=== PATIENT | male | born 1950 | race Caucasian/White ===

== ENCOUNTER 2018-12-27 12:46 | Outpatient (CLI) | payer BC, MEDICARE ==
[2018-12-27 14:06] LABS: #Basophils 0.1 thou/uL (0.0-0.2); #Eosinphils 0.5 thou/uL (0.0-0.7); #Lymphocytes 3.4 thou/uL (1.20-3.40); #Monocytes 0.7 thou/uL (0.11-0.59); #Neutrophils 4.4 thou/uL (1.40-6.50); %Basophils 1.1 % (0.0-1.0); %Eosinophils 5.6 % (0.0-10.0); %Lymphocytes 37.2 % (21.0-51.0); %Neutrophils 48.1 % (42.0-75.0); Hemoglobin 17.6 g/dL (14.0-18.0); Mean Corpuscular Volume 94.2 fL (78.0-98.0); Platelet Count 264 thou/uL (130-400); RBC Distribution Width 11.5 % (11.5-14.5); Red Blood Cell (RBC) Count 5.33 mill/uL (4.70-6.10); White Blood Cell (WBC) Count 9.1 thou/uL (4.8-10.8)
[2018-12-27 14:12] LABS: Prothrombin Time 12.9 SEC (12.0-14.7)
[2018-12-27 14:22] LABS: Bacteria/HPF None Seen HPF (None Seen); Bilirubin Negative (Negative); Blood, Urine 2+ (Negative); Clarity Clear (Clear); Glucose, Urine (Dipstick) Normal (Negative); Leukocyte Negative Leu/uL (Negative); Nitrite Negative (Negative); Protein, Urine (Dipstick) 30 mg/dL (Neg-Trace); Squamous Epithelial None Seen HPF (0-3); Urobilinogen 3 mg/dL (Less than 2); WBC/HPF 0-3 HPF (0-3)
[2018-12-27 14:26] LABS: Anion Gap 15 mmol/L (10-20); BUN (Urea Nitrogen) 23 mg/dL (8.4-25.7); Calc. Creatinine Clearance 0 mL/min (70-130); Calcium 9.3 mg/dL (7.8-10.44); Carbon Dioxide 25 mmol/L (23-31); Chloride 101 mmol/L (98-107); Estimated GFR-MDRD 87; Glucose 118 mg/dL (80-115); Potassium 3.7 mmol/L (3.5-5.1); Sodium 137 mmol/L (136-145)
--- NOTE | 2018-12-27 16:56 | EKG ---
Test Reason : Blood Pressure : / mmHG Vent. Rate : 074 BPM Atrial Rate : 074 BPM P-R Int : 290 ms QRS Dur : 096 ms QT Int : 394 ms P-R-T Axes : 063 078 047 degrees QTc Int : 437 ms Sinus rhythm with 1st degree A-V block Possible Anterior infarct , age undetermined Abnormal ECG Confirmed by VANE BARKLEY ([id number]) on 12/27/2018 4:56:45 PM Referred By: FLORECITA Confirmed By:VANE BARKLEY
== END 2018-12-27 12:47 | disposition home or self-care (01) ==
LOC: LABBT 12:46
PROVIDERS: ATTEND Orthopaedic Surgery
DX: Z01.818 Encounter for other preprocedural examination (principal); M17.11 Unilateral primary osteoarthritis, right knee
CPT/HCPCS: 80048; 81001; 85025; 85610; 87081; 93005; 93010

== ENCOUNTER 2018-12-27 13:15 | Inpatient (IN) | payer BC, MEDICARE ==
[2018-12-27 13:08] VITALS: BMI 32.8
[2019-01-08] MEDS ORDERED: Sodium Chloride 0.9% 100 ML ONE (05:55)
[2019-01-08] MEDS ORDERED: Tranexamic Acid 1,000 MG/10 ML VIAL ONE (05:55)
[2019-01-08] MEDS ORDERED: Vancomycin 1.5 GRAM/300 ML BAG 1.5 GM in Premix Bag 1 BAG IVPB SCH (06:00)
[2019-01-08] MEDS ORDERED: Lidocaine 1% (PF) 30 ML VIAL ONE (06:17)
[2019-01-08] MEDS ORDERED: Midazolam HCl 2 mg/2 ml Vial ONE (06:17)
[2019-01-08] MEDS ORDERED: Fentanyl 100 MCG/2 ML VIAL ONE ×2 (06:17→07:12)
[2019-01-08] MEDS ORDERED: Ropivacaine 0.2% HCl/PF 20 ML ONE (06:17)
[2019-01-08] MEDS ORDERED: Fentanyl 100 MCG/2 ML VIAL IV PRN (07:12)
[2019-01-08] MEDS ORDERED: Ondansetron PF 4 MG/2 ML Vial IVP PRN ×2 (07:12→07:14)
[2019-01-08] MEDS ORDERED: traMADol HCl 50 MG TAB PO PRN ×2 (07:12)
[2019-01-08] MEDS ORDERED: Promethazine HCl 25 MG/ML VIAL IM PRN ×2 (07:12→07:14)
[2019-01-08] MEDS ORDERED: HYDROcodone/Acetaminophen 10/325 mg Tablet PO PRN (07:12)
[2019-01-08] MEDS ORDERED: Zolpidem Tartrate 5 MG TAB PO PRN ×2 (07:12→07:14)
[2019-01-08] MEDS ORDERED: Ropivacaine HCl/PF 250 ML in Premix Bag 1 BAG NERVE BLCK SCH (07:12)
[2019-01-08] MEDS ORDERED: Acetaminophen 325 MG TAB PO PRN (07:14)
[2019-01-08] MEDS ORDERED: diphenhydrAMINE 25 MG CAP PO PRN (07:14)
[2019-01-08] MEDS ORDERED: Docusate 100 MG CAP PO PRN (07:15)
[2019-01-08] MEDS: Sodium Chloride 0.9% 1,000 ML IV SCH ×3 (07:38→23:20)
[2019-01-08] MEDS ORDERED: Aspirin 325 MG TAB PO SCH (09:00)
[2019-01-08] MEDS ORDERED: TUMERIC 1000 MG PO SCH (09:00)
--- NOTE | 2019-01-08 09:11 | RAD ---
Exam:2 views right knee HISTORY: Right knee arthroplasty COMPARISON: None FINDINGS: Expected postoperative changes. No malalignment. Extensive atherosclerosis. IMPRESSION: Findings compatible with total right knee arthroplasty.
[2019-01-08] MEDS ORDERED: Lidocaine 1% PF 5 ML VIAL ONE (09:39)
[2019-01-08] MEDS ORDERED: PROPOFOL 200 MG/20 ML VIAL ONE (09:39)
[2019-01-08] MEDS ORDERED: Metoclopramide HCl 10 MG/2 ML VIAL ONE (09:39)
[2019-01-08] MEDS ORDERED: Ropivacaine 0.2% HCl/PF (40 MG/20 ML VIAL) ONE (09:39)
[2019-01-08] MEDS ORDERED: Ondansetron PF 4 MG/2 ML Vial ONE (09:39)
[2019-01-08] MEDS ORDERED: PHENYLEPHRINE-NS 100 MCG/ML 10 ML SYRINGE ONE (09:39)
[2019-01-08] MEDS ORDERED: ePHEDrine/0.9% NaCl/PF SYRINGE 50 mg/10 ml ONE (09:39)
[2019-01-08] MEDS ORDERED: Bupivacaine HCl 0.5%/Epinephrine 1:200,000/PF 30 ml Vial ONE (09:39)
[2019-01-08] MEDS ORDERED: Dexamethasone 20 MG/5 ML VIAL ONE (09:39)
--- NOTE | 2019-01-08 10:17 | OP ---
DATE OF PROCEDURE: 01/08/2019 PREOPERATIVE DIAGNOSIS: End-stage tricompartmental osteoarthritis, right knee. POSTOPERATIVE DIAGNOSIS: End-stage tricompartmental osteoarthritis, right knee. PROCEDURE PERFORMED: Cemented cruciate sparing computer-assisted navigated right total knee arthroplasty. BOILER REPAIR SUPERVISOR: Iftikhar Lowry PA-C ANESTHESIA: General via LMA augmented with indwelling adductor canal block and a single-shot sciatic block. COMPONENTS USED: [employer] Triathlon size 6 cemented cruciate sparing femoral component, primary cemented size 6 tibial baseplate, 9 mm polyethylene fixed bearing insert, and A38 patella button. TOURNIQUET TIME: 51 minutes at 300 mmHg. INPUT: 1 L crystalloid. OUTPUT: None measured. No Ronquillo placed. ESTIMATED BLOOD LOSS: Less than 100. FINDINGS: End-stage severe degenerative tricompartmental disease, [id number] arthrosis, periarticular osteophyte formation, large serous effusion, hypertrophic synovium. DRAINS: None. SPECIMENS: None. COMPLICATIONS: None. COUNTS: Correct. INDICATION FOR SURGERY: Jese is a 68-year-old white male, who has had progressive right knee pain standing and walking for last 5 to 7 years. He has failed conservative management and elected to proceed with total knee arthroplasty as definitive treatment of pain. PROCEDURE IN DETAIL: After informed consent was obtained in the preoperative holding area, the patient was taken to the operative suite where general anesthesia was induced. Once adequate level of general anesthesia was obtained, the patient was positioned and a well-padded tourniquet was placed around the right proximal thigh. The right lower extremity was then prepped and draped in the usual sterile fashion. Prior to exsanguination, a time-out was called and all members of the surgical team agreed upon site, surgeon, and patient. The extremity was then exsanguinated and the tourniquet was raised. A midline longitudinal incision was then made directly over the patella extending 2 fingerbreadths above the superior pole of the patella and 2 fingerbreadths inferior to the inferior patellar pole of the patella. Deeper subcutaneous layers were dissected sharply and local bleeding was controlled with Bovie electrocautery. A quad tendon longitudinal split was then made sharply and a median parapatellar arthrotomy was carried out both sharp and with Bovie electrocautery, carried down to 1 fingerbreadth medial to the tibial tubercle. The knee was then placed into flexion and the patella was everted nicely, and a copious fat pad ectomy was performed allowing for greater exposure of the tibia. The computer-assisted distal femoral fiducial was then placed and pinned firmly, and the distal femoral cutting guide was pinned firmly into place. The oscillating saw was then used to remove the appropriate amount of bone. The 4-in-1 cutting block was then placed on the distal femur and the oscillating saw was used to remove the appropriate amount of bone off the anterior, posterior, and chamfer cuts. After completion of bone cuts, the anterior cruciate ligament was resected sharply and the posterior cruciate ligament retractor was placed and the tibia was subluxed for better exposure. Partial meniscectomies were carried out, and the tibial computer-assisted fiducial was pinned, and the cutting guide was placed. Oscillating saw was then used to remove the bone, with Hohmann retractors used to take care and protect the collateral ligaments. After the tibial resection was performed, a laminar corporate legal assistant was placed in between the freshened bone cuts. The knee placed at 90 degrees and further bilateral meniscectomies were carried out, and the curved osteotome and curettage were used to remove any excess bone spurs in the posterior compartment. The trial femoral component, tibial baseplate were placed with the appropriate polyethylene trial insert with an appropriate polyethylene spacer and patellar button. The knee was taken through full range of motion with flexion and extension from 0 to 90 degrees and patellar broach squarely in the trochlea without any squinting or subluxation noted. The knee was also stable to varus and valgus stressing at 0, 15, 45, and 90 degrees of flexion. The drawer was negative. All trial components were then removed and the keel punch was used to provide the appropriate defect in the tibia with a mallet. The freshened bone cuts were copiously irrigated with pulsatile lavage of about 1.5 L to remove all excess debris. The freshened bone cuts were then dried with suction and lap sponge. The knee was placed in flexion and retractors were placed to provide access to all bone cuts. Tobramycin-impregnated methyl methacrylate cement was then placed on the freshened bone cuts and implants which were malleted firmly into place. Curettage and [place] elevators were used to remove any excess bone cement. The knee was placed into full extension and the patellar button was placed under compression, and the cement was allowed to cure. Once completed, the components were again taken through full range of motion and copious irrigation of the knee was carried out with another liter of normal saline. All components were inspected fully with full range of motion and varus and valgus stressing. There was no laxity noted and full extension was observed clinically. Primary closure was accomplished with #2 interrupted Vicryl stitch of the arthrotomy defect. This was oversewn with a #2 running Quill barbed stitch. The gravitational platelet system was then injected into the arthrotomy prior to closure. The subcutaneous layer was then closed with a running 0 barbed Monocryl stitch and skin closure accomplished with a running subcuticular 3-0 Monocryl barbed Quill stitch and augmented with cement on the skin. Tourniquet was lowered. Good spontaneous return of distal pulses was noted clinically and a sterile dressing was applied to the incision. The procedure was terminated without any complications. The patient was awakened in the operative suite and the was removed, and the patient was taken to the recovery room in stable condition. Job ID: [id number]
[2019-01-08] MEDS: Aspirin 81 mg Enteric Coated Tablet PO SCH ×2 (10:56→21:07)
[2019-01-08] MEDS: Ketorolac Tromethamine 30 MG/ML VIAL IVP SCH ×3 (12:05→23:19)
[2019-01-08] MEDS: hydrALAZINE 20 MG/ML VIAL SLOW IVP PRN (13:27)
[2019-01-08] MEDS: CEFAZOLIN 2 GM in Premix Bag 1 BAG IVPB SCH ×2 (13:28→21:07)
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
[2019-01-08] MEDS: HYDROcodone/Acetaminophen 10/325 mg Tablet PO PRN (21:12)
[2019-01-09] MEDS: hydrALAZINE 20 MG/ML VIAL SLOW IVP PRN (01:45)
[2019-01-09] MEDS ORDERED: hydrALAZINE 20 MG/ML VIAL SLOW IVP PRN (03:06)
[2019-01-09] MEDS ORDERED: hydrALAZINE 20 MG/ML VIAL SLOW IVP SCH (03:15)
[2019-01-09 05:16] LABS: Hemoglobin 15.1 g/dL (14.0-18.0); Mean Corpuscular Hemoglobin 32.1 pg (27.0-31.0); Mean Corpuscular Volume 94.5 fL (78.0-98.0); Mean Platelet Volume 7.2 fL (7.4-10.4); Platelet Count 221 thou/uL (130-400); RBC Distribution Width 11.5 % (11.5-14.5); White Blood Cell (WBC) Count 13.7 thou/uL (4.8-10.8)
[2019-01-09] MEDS: Ketorolac Tromethamine 30 MG/ML VIAL IVP SCH ×4 (05:20→23:21)
[2019-01-09] MEDS: Ferrous Gluconate 324 MG TAB PO SCH ×2 (08:34→17:03)
[2019-01-09] MEDS: Aspirin 81 mg Enteric Coated Tablet PO SCH ×2 (08:35→20:41)
[2019-01-09] MEDS: Multivitamin W/ Minerals 1 TAB PO SCH (08:35)
[2019-01-09] MEDS: Senokot S 8.6-50 MG TAB PO SCH ×2 (08:36→20:41)
[2019-01-09] MEDS: HYDROcodone/Acetaminophen 10/325 mg Tablet PO PRN ×2 (08:37→17:03)
[2019-01-09] MEDS ORDERED: FLU VACC TS2019-20(65YR UP)/PF 180 MCG/0.5 ML SYRINGE IM ONE (09:00)
[2019-01-09] MEDS ORDERED: Prevnar 13-Val Conj/PF 0.5 ML SYRINGE IM ONE (09:00)
[2019-01-09] MEDS: Sodium Chloride 0.9% 1,000 ML IV SCH ×2 (15:24→23:25)
--- NOTE | 2019-01-09 18:11 | PDOC.HOSPP ---
- Subjective Encounter Date: 01/09/19 Encounter Time: 09:00 Subjective: Pt seen for followup re: hypertension. No complaints. - Objective Vital Signs & Weight: Vital Signs (12 hours) Temp Pulse Resp BP Pulse Ox 01/09/19 16:11 98.8 F 67 18 186/95 H 95 01/09/19 07:37 99 F 86 18 173/84 H 96 Weight Admit Weight 235 lb Weight 235 lb I&O: 01/08/19 01/09/19 01/10/19 06:59 06:59 06:59 Intake Total 1999 Output Total 1924 Balance 75 Result Diagrams: 01/09/19 05:03 Additional Labs: Labs and MARs reviewed by pa Hospitalist ROS - Review of Systems Cardiovascular: denies: chest pain, palpitations, orthopnea, paroxysmal noc. dyspnea, edema, light headedness Gastrointestinal: denies: nausea, vomiting, abdominal pain, diarrhea, constipation, melena, hematochezia - Medication Medications: Active Medications Generic Name Dose Route Start Last Admin Trade Name Freq PRN Reason Stop Dose Admin Hydrocodone Bitart/Acetaminophen 2 tab 01/08/19 07:12 01/09/19 17:03 [place] 10/325 PO 2 tab Q4H PRN Administration PAIN (4-6) Aspirin 81 mg 01/08/19 09:00 01/09/19 08:35 Ecotrin PO 81 mg BID TORI Administration Ferrous Gluconate 324 mg 01/09/19 08:00 01/09/19 17:03 Fergon PO 324 mg BID-WM TORI Administration Hydralazine HCl 10 mg 01/08/19 12:44 01/09/19 01:45 Apresoline SLOW IVP 10 mg Q6H PRN Administration SBP Greater Than 170 Sodium Chloride 1,000 mls @ 100 mls/hr 01/08/19 07:15 01/09/19 15:24 Normal Saline 0.9% IV Not Given .Q10H TORI Iron/Minerals/Multivitamins 1 tab 01/09/19 09:00 01/09/19 08:35 Theragran M PO 1 tab DAILY TORI Administration Ketorolac Tromethamine 15 mg 01/08/19 12:00 01/09/19 12:25 Toradol IVP 01/10/19 06:01 15 mg Q6HR TORI Administration Metoprolol Succinate 50 mg 01/08/19 09:00 01/09/19 08:35 Toprol Xl PO 50 mg QAM TORI Administration Senna/Docusate Sodium 2 tab 01/09/19 09:00 01/09/19 08:36 Senokot S PO 2 tab BID TORI Administration Sodium Chloride 10 ml 01/08/19 09:00 01/09/19 12:29 Flush - Normal Saline IVF 10 ml Q12HR TORI Administration - Exam General - other findings: Obese Eye: anicteric sclera ENT: moist mucosa Neck: supple Heart: RRR Respiratory: CTAB Gastrointestinal: soft, non-tender Extremities: no clubbing Musculoskeletal - other findings: s/p R knee surgery Psychiatric: normal affect, normal behavior Hosp A/P (1) HTN (hypertension) Code(s): I10 - ESSENTIAL (PRIMARY) HYPERTENSION Status: Chronic (2) Osteoarthritis Code(s): M19.90 - UNSPECIFIED OSTEOARTHRITIS, UNSPECIFIED SITE Status: Chronic - Plan PT/OT, out of bed/ambulate Monitor vital signs, titrate antihypertensives as needed. BP still high, start scheduled hydralazine. s/p R knee surgery. DVT prophylaxis and pain management per orthopedic surgery service.
[2019-01-09] MEDS ORDERED: hydrALAZINE 25 MG TAB PO SCH (18:15)
[2019-01-09] MEDS: cloNIDine 0.1 MG TAB PO PRN (18:46)
[2019-01-09] MEDS: hydrALAZINE 25 MG TAB PO SCH (20:41)
[2019-01-10] MEDS: cloNIDine 0.1 MG TAB PO PRN (03:30)
[2019-01-10] MEDS: HYDROcodone/Acetaminophen 10/325 mg Tablet PO PRN ×3 (03:30→13:53)
[2019-01-10 05:32] LABS: Hemoglobin 13.9 g/dL (14.0-18.0); Mean Corpuscular HGB CONC 34.8 g/dL (32.0-36.0); Mean Corpuscular Hemoglobin 32.9 pg (27.0-31.0); Mean Corpuscular Volume 94.5 fL (78.0-98.0); Mean Platelet Volume 7.9 fL (7.4-10.4); Platelet Count 201 thou/uL (130-400); RBC Distribution Width 11.5 % (11.5-14.5); Red Blood Cell (RBC) Count 4.21 mill/uL (4.70-6.10); White Blood Cell (WBC) Count 12.5 thou/uL (4.8-10.8)
[2019-01-10] MEDS: Ketorolac Tromethamine 30 MG/ML VIAL IVP SCH (05:34)
[2019-01-10] MEDS: Multivitamin W/ Minerals 1 TAB PO SCH (09:21)
[2019-01-10] MEDS: Ferrous Gluconate 324 MG TAB PO SCH (09:21)
[2019-01-10] MEDS: Senokot S 8.6-50 MG TAB PO SCH (09:21)
[2019-01-10] MEDS: Aspirin 81 mg Enteric Coated Tablet PO SCH (09:21)
[2019-01-10] MEDS: hydrALAZINE 25 MG TAB PO SCH (09:21)
[2019-01-10] MEDS: Sodium Chloride 0.9% 1,000 ML IV SCH (09:23)
[2019-01-10 12:10] VITALS: BP 184/88; TEMP 97.6
== END 2019-01-10 14:16 | disposition home or self-care (01) | DRG 470 ==
LOC: SJJU 01-08 05:11
PROVIDERS: ADMIT Orthopaedic Surgery; ATTEND Orthopaedic Surgery
PROC: 0SRC0J9 Replacement of Right Knee Joint with Synthetic Substitute, Cemented, Open Approach (ICD-10-PCS; principal; 2019-01-08)
PROC: 8E0YXBZ Computer Assisted Procedure of Lower Extremity (ICD-10-PCS; 2019-01-08)
DX: M17.11 Unilateral primary osteoarthritis, right knee (principal); I10 Essential (primary) hypertension; Z96.652 Presence of left artificial knee joint; M06.9 Rheumatoid arthritis, unspecified; Z87.891 Personal history of nicotine dependence; Z88.2 Allergy status to sulfonamides; Z79.82 Long term (current) use of aspirin
CPT/HCPCS: 36415; 85027; C1713; C1776; J0360; J0670; J0690; J1100; J1885; J2001; J2250; J2405; J2704; J2765; J2795; J3010; J3490

== ENCOUNTER 2019-02-12 14:19 | Outpatient (CLI) | payer BC, MEDICARE ==
--- NOTE | 2019-02-12 14:49 | ULT ---
EXAM: Right lower extremity venous Doppler US HISTORY: Right lower extremity edema and pain FINDINGS: Grayscale, color-flow, Doppler evaluation, spectral analysis of the right lower extremity venous stru ctures is performed with 2-D imaging. The right common femoral, superficial femoral, popliteal, posterior tibial, proximal greater saphenous and profunda femoral veins are imaged. There is normal luminal compressibility, flow, and augmentation the visualized deep venous structures of the right lower extremity. IMPRESSION: No evidence of a deep vein thrombosis in the right lower extremity.
== END 2019-02-12 14:20 | disposition home or self-care (01) ==
LOC: ULT 14:19
PROVIDERS: ATTEND Family Medicine
DX: M79.89 Other specified soft tissue disorders (principal)

== ENCOUNTER 2022-01-07 08:20 | Inpatient (IN) | payer MEDICARE ==
[2022-01-07] MEDS ORDERED: Morphine 4 MG/ML VIAL ONE ×2 (09:41→11:23)
[2022-01-07] MEDS ORDERED: Ondansetron PF 4 MG/2 ML Vial ONE (09:41)
[2022-01-07 09:56] LABS: #Basophils 0.1 thou/uL (0.0-0.2); #Eosinphils 0.2 thou/uL (0.0-0.7); #Lymphocytes 3.1 thou/uL (1.20-3.40); #Monocytes 0.8 thou/uL (0.11-0.59); #Neutrophils 9.8 thou/uL (1.40-6.50); %Eosinophils 1.2 % (0.0-10.0); %Lymphocytes 22.4 % (21.0-51.0); %Monocytes 5.7 % (0.0-10.0); %Neutrophils 69.8 % (42.0-75.0); Hemoglobin 16.9 g/dL (14.0-18.0); Mean Corpuscular HGB CONC 34.1 g/dL (32.0-36.0); Mean Corpuscular Hemoglobin 32.6 pg (27.0-31.0); Mean Corpuscular Volume 95.5 fl (78.0-98.0); Mean Platelet Volume 6.5 fL (7.4-10.4); Platelet Count 262 10x3/uL (130-400); RBC Distribution Width 11.8 % (11.5-14.5); Red Blood Cell (RBC) Count 5.19 mill/uL (4.70-6.10)
[2022-01-07 10:18] LABS: ALT (SGPT) 30 U/L (8-55); AST (SGOT) 22 U/L (5-34); Albumin 4.1 g/dL (3.4-4.8); Alkaline Phosphatase 48 U/L (40-110); Anion Gap 12 mmol/L (10-20); BUN (Urea Nitrogen) 12 mg/dL (8.4-25.7); Bilirubin, Total 0.8 mg/dL (0.2-1.2); Calc. Creatinine Clearance 0 mL/min (70-130); Calcium 9.3 mg/dL (7.8-10.44); Carbon Dioxide 26 mmol/L (23-31); Chloride 92 mmol/L (98-107); Estimated GFR 95; Globulin 3.3 g/dL (2.4-3.5); Glucose 110 mg/dL (83-110); Lipase 10 U/L (8-78); Potassium 3.9 mmol/L (3.5-5.1); Protein, Total 7.4 g/dL (5.8-8.1); Sodium 126 mmol/L (136-145)
[2022-01-07] MEDS ORDERED: Iopamidol-370 76% 500 ML 1 ML ONE (10:34)
[2022-01-07 11:00] LABS: Bacteria/HPF None Seen HPF (None Seen); Bilirubin Negative (Negative); Blood, Urine 1+ (Negative); Clarity Clear (Clear); Glucose, Urine (Dipstick) Normal (Negative); Ketone, Urine Negative (Negative); Leukocyte Negative Leu/uL (Negative); Nitrite Negative (Negative); Protein, Urine (Dipstick) Negative (Neg-Trace); Specific Gravity, Urine 1.041 (1.002-1.036); Squamous Epithelial None Seen HPF (0-3); Urobilinogen Normal mg/dL (Less than 2); WBC/HPF 0-3 HPF (0-3); pH, Urine 6.5 (5.0-9.0)
[2022-01-07 11:15] LABS: Sperm/HPF None Seen HPF (None Seen)
[2022-01-07] MEDS ORDERED: Piperacillin/Tazobactam 4.5 GM VIAL ONE (11:23)
[2022-01-07] MEDS ORDERED: Acetaminophen 325 MG TAB PO PRN (12:30)
[2022-01-07] MEDS ORDERED: Senokot S 8.6-50 MG TAB PO PRN (12:30)
[2022-01-07] MEDS ORDERED: Ondansetron ODT 4 MG TAB PO PRN (12:30)
[2022-01-07 13:26] VITALS: BMI 33.5
[2022-01-07] MEDS ORDERED: Albuterol Sulfate 1.25 MG/3 ML NEB NEB PRN (13:39)
[2022-01-07] MEDS: Morphine 4 MG/ML VIAL SLOW IVP PRN ×2 (14:19→20:58)
[2022-01-07] MEDS: Dextrose 5 %-0.45 % NaCl 1,000 ML IV SCH (14:20)
[2022-01-07] MEDS: Nicotine 14 MG PATCH TD SCH (14:21)
[2022-01-07] MEDS: Piperacillin/Tazobactam 3.375 GM in Sodium Chloride 0.9% 100 ML IVPB SCH ×2 (16:33→23:04)
[2022-01-07] MEDS ORDERED: GoLYTELY 4,000 ml Bottle PO SCH (17:30)
[2022-01-07 18:23] LABS: Anion Gap 12 mmol/L (10-20); BUN (Urea Nitrogen) 10 mg/dL (8.4-25.7); Calc. Creatinine Clearance 139 mL/min (70-130); Carbon Dioxide 26 mmol/L (23-31); Chloride 93 mmol/L (98-107); Estimated GFR 96; Glucose 115 mg/dL (83-110); Sodium 127 mmol/L (136-145)
[2022-01-07] MEDS: Famotidine 20 MG TAB PO SCH (20:56)
[2022-01-08] MEDS: Dextrose 5 %-0.45 % NaCl 1,000 ML IV SCH (03:31)
[2022-01-08] MEDS: Morphine 4 MG/ML VIAL SLOW IVP PRN ×4 (03:41→17:02)
[2022-01-08 06:56] LABS: ALT (SGPT) 24 U/L (8-55); AST (SGOT) 14 U/L (5-34); Albumin 3.8 g/dL (3.4-4.8); Alkaline Phosphatase 45 U/L (40-110); Anion Gap 10 mmol/L (10-20); BUN (Urea Nitrogen) 10 mg/dL (8.4-25.7); Bilirubin, Total 1.2 mg/dL (0.2-1.2); Calc. Creatinine Clearance 147 mL/min (70-130); Calcium 8.8 mg/dL (7.8-10.44); Carbon Dioxide 27 mmol/L (23-31); Chloride 93 mmol/L (98-107); Estimated GFR 98; Globulin 3.1 g/dL (2.4-3.5); Glucose 137 mg/dL (83-110); Potassium 3.1 mmol/L (3.5-5.1); Protein, Total 6.9 g/dL (5.8-8.1); Sodium 127 mmol/L (136-145)
[2022-01-08] MEDS: Piperacillin/Tazobactam 3.375 GM in Sodium Chloride 0.9% 100 ML IVPB SCH ×3 (08:38→23:20)
[2022-01-08] MEDS: Famotidine 20 MG TAB PO SCH (08:40)
[2022-01-08] MEDS ORDERED: Losartan 25 MG TAB PO SCH (09:00)
[2022-01-08] MEDS ORDERED: Losartan/Hydrochlorothiazide 100 mg/25 mg Tablet PO SCH (09:00)
[2022-01-08] MEDS ORDERED: Potassium Chloride 20 MEQ TAB PO SCH (10:45)
[2022-01-08] MEDS ORDERED: D5 1/2 NS w/20 mEq KCL 1,000 ML IV SCH (12:00)
[2022-01-08 12:41] LABS: #Basophils 0.1 thou/uL (0.0-0.2); #Lymphocytes 2.3 thou/uL (1.20-3.40); #Neutrophils 11.6 thou/uL (1.40-6.50); %Basophils 0.4 % (0.0-1.0); %Eosinophils 0.3 % (0.0-10.0); %Lymphocytes 15.3 % (21.0-51.0); %Monocytes 6.6 % (0.0-10.0); %Neutrophils 77.4 % (42.0-75.0); Mean Corpuscular Hemoglobin 32.6 pg (27.0-31.0); Mean Corpuscular Volume 95.8 fl (78.0-98.0); Mean Platelet Volume 6.7 fL (7.4-10.4); Platelet Count 222 10x3/uL (130-400); RBC Distribution Width 11.8 % (11.5-14.5); Red Blood Cell (RBC) Count 4.89 mill/uL (4.70-6.10); White Blood Cell (WBC) Count 14.9 10x3/uL (4.8-10.8)
[2022-01-08 12:53] LABS: INR-International Normal Ratio 1.2; PTT 37.1 sec (22.9-36.1); Prothrombin Time 15.5 sec (12.0-14.7)
[2022-01-08] MEDS: Nicotine 14 MG PATCH TD SCH (13:59)
[2022-01-08] MEDS: Potassium Chloride 30 MEQ in Sodium Chloride 0.9% 1,000 ML IV SCH (17:56)
[2022-01-08] MEDS: Famotidine/PF 20 mg/2ml Vial SLOW IVP SCH (20:08)
[2022-01-08] MEDS ORDERED: Morphine 4 MG/ML VIAL SLOW IVP SCH (20:15)
[2022-01-09] MEDS: Potassium Chloride 30 MEQ in Sodium Chloride 0.9% 1,000 ML IV SCH ×2 (05:53→21:24)
[2022-01-09] MEDS: Morphine 4 MG/ML VIAL SLOW IVP PRN ×3 (05:54→23:37)
[2022-01-09 07:01] LABS: Anion Gap 10 mmol/L (10-20); BUN (Urea Nitrogen) 10 mg/dL (8.4-25.7); Bilirubin, Total 1.2 mg/dL (0.2-1.2); Calc. Creatinine Clearance 158 mL/min (70-130); Calcium 8.9 mg/dL (7.8-10.44); Carbon Dioxide 29 mmol/L (23-31); Chloride 92 mmol/L (98-107); Estimated GFR 100; Glucose 97 mg/dL (83-110); Potassium 3.1 mmol/L (3.5-5.1); Protein, Total 6.5 g/dL (5.8-8.1); Sodium 128 mmol/L (136-145)
[2022-01-09 07:02] LABS: ALT (SGPT) 19 U/L (8-55); AST (SGOT) 15 U/L (5-34); Albumin 3.5 g/dL (3.4-4.8); Alkaline Phosphatase 43 U/L (40-110)
[2022-01-09] MEDS: Piperacillin/Tazobactam 3.375 GM in Sodium Chloride 0.9% 100 ML IVPB SCH ×3 (08:21→23:32)
[2022-01-09] MEDS: Famotidine/PF 20 mg/2ml Vial SLOW IVP SCH ×2 (08:21→21:24)
[2022-01-09] MEDS ORDERED: Potassium Chloride 20 MEQ in Premix Bag 1 BAG IVPB SCH (10:45)
[2022-01-09] MEDS: Nicotine 14 MG PATCH TD SCH (13:46)
[2022-01-09] MEDS ORDERED: Piperacillin/Tazobactam 3.375 GM VIAL ONE (15:38)
[2022-01-09] MEDS ORDERED: fentaNYL PF 100 MCG/2 ML SYRINGE ONE (16:13)
[2022-01-09] MEDS ORDERED: Bupivacaine HCl 0.5%/Epinephrine 1:200,000/PF 30 ml Vial ONE (16:15)
[2022-01-09] MEDS ORDERED: Glycopyrrolate 0.2 MG/ML 5 ML SYRINGE ONE (17:02)
[2022-01-09] MEDS ORDERED: Calcium Chloride 1 GM/10 ML Abboject SYRINGE ONE (17:02)
[2022-01-09] MEDS ORDERED: NEOSTIGMINE 3 MG/3 ML SYR 3 MG/3 ML SYRINGE ONE (17:02)
[2022-01-09] MEDS ORDERED: Ondansetron PF 4 MG/2 ML Vial ONE (17:02)
[2022-01-09] MEDS ORDERED: Rocuronium Bromide 10 MG/ML (10ML VIAL) ONE (17:02)
[2022-01-09] MEDS ORDERED: PROPOFOL 200 MG/20 ML VIAL ONE (17:02)
[2022-01-09] MEDS ORDERED: Succinylcholine Chloride 200 MG/10 ML VIAL ONE (17:02)
[2022-01-09] MEDS ORDERED: PHENYLEPHRINE-NS 100 MCG/ML 10 ML SYRINGE ONE (17:02)
[2022-01-09] MEDS ORDERED: ePHEDrine 50 MG/ML VIAL ONE (17:02)
[2022-01-09] MEDS ORDERED: Sodium Chloride 0.9% 100 ML ONE (18:47)
[2022-01-09] MEDS ORDERED: Promethazine HCl 25 MG/ML VIAL IM PRN (19:34)
[2022-01-09] MEDS ORDERED: Promethazine HCl 25 MG/ML VIAL IVPB PRN (19:34)
[2022-01-09] MEDS ORDERED: Ondansetron HCl/PF 4 MG/2 ML Vial IVP PRN (19:34)
[2022-01-09] MEDS ORDERED: Morphine 2 MG/ML VIAL SLOW IVP PRN (19:58)
[2022-01-09] MEDS: Enoxaparin Sodium 40 MG/0.4 ML SYRINGE SC SCH (21:24)
[2022-01-09] MEDS: Ketorolac Tromethamine 30 MG/ML VIAL IVP SCH (23:29)
[2022-01-10] MEDS: Ketorolac Tromethamine 30 MG/ML VIAL IVP SCH ×4 (05:25→23:14)
[2022-01-10] MEDS: Morphine 4 MG/ML VIAL SLOW IVP PRN ×2 (05:32→23:20)
[2022-01-10] MEDS ORDERED: Morphine 4 MG/ML VIAL SLOW IVP PRN (07:29)
[2022-01-10 07:38] LABS: #Lymphocytes 1.3 thou/uL (1.20-3.40); #Monocytes 0.7 thou/uL (0.11-0.59); #Neutrophils 8.8 thou/uL (1.40-6.50); %Eosinophils 0.1 % (0.0-10.0); %Lymphocytes 11.6 % (21.0-51.0); %Monocytes 6.2 % (0.0-10.0); Hemoglobin 15.2 g/dL (14.0-18.0); Mean Corpuscular HGB CONC 33.9 g/dL (32.0-36.0); Mean Corpuscular Hemoglobin 32.2 pg (27.0-31.0); Mean Platelet Volume 7.4 fL (7.4-10.4); Platelet Count 218 10x3/uL (130-400); RBC Distribution Width 11.6 % (11.5-14.5); Red Blood Cell (RBC) Count 4.73 mill/uL (4.70-6.10); White Blood Cell (WBC) Count 10.8 10x3/uL (4.8-10.8)
[2022-01-10 07:50] LABS: ALT (SGPT) 18 U/L (8-55); AST (SGOT) 13 U/L (5-34); Albumin 3.1 g/dL (3.4-4.8); Alkaline Phosphatase 37 U/L (40-110); Anion Gap 14 mmol/L (10-20); BUN (Urea Nitrogen) 14 mg/dL (8.4-25.7); Bilirubin, Total 1.4 mg/dL (0.2-1.2); Calc. Creatinine Clearance 145 mL/min (70-130); Calcium 8.4 mg/dL (7.8-10.44); Carbon Dioxide 23 mmol/L (23-31); Chloride 97 mmol/L (98-107); Estimated GFR 98; Globulin 2.8 g/dL (2.4-3.5); Glucose 118 mg/dL (83-110); Potassium 3.8 mmol/L (3.5-5.1); Protein, Total 5.9 g/dL (5.8-8.1); Sodium 130 mmol/L (136-145)
[2022-01-10] MEDS: Piperacillin/Tazobactam 3.375 GM in Sodium Chloride 0.9% 100 ML IVPB SCH ×3 (08:32→23:14)
[2022-01-10] MEDS: Famotidine/PF 20 mg/2ml Vial SLOW IVP SCH ×2 (08:32→21:12)
[2022-01-10] MEDS: Potassium Chloride 30 MEQ in Sodium Chloride 0.9% 1,000 ML IV SCH ×2 (08:42→23:06)
[2022-01-10] MEDS: Nicotine 14 MG PATCH TD SCH (12:24)
[2022-01-10] MEDS: Enoxaparin Sodium 40 MG/0.4 ML SYRINGE SC SCH (21:12)
[2022-01-11] MEDS: Ketorolac Tromethamine 30 MG/ML VIAL IVP SCH ×3 (05:04→18:04)
[2022-01-11 06:28] LABS: #Eosinphils 0.1 thou/uL (0.0-0.7); #Lymphocytes 1.7 thou/uL (1.20-3.40); #Monocytes 0.7 thou/uL (0.11-0.59); #Neutrophils 4.9 thou/uL (1.40-6.50); %Basophils 0.3 % (0.0-1.0); %Eosinophils 0.9 % (0.0-10.0); %Monocytes 9.2 % (0.0-10.0); %Neutrophils 66.6 % (42.0-75.0); Mean Corpuscular HGB CONC 33.7 g/dL (32.0-36.0); Mean Corpuscular Hemoglobin 32.5 pg (27.0-31.0); Mean Corpuscular Volume 96.6 fl (78.0-98.0); Mean Platelet Volume 6.9 fL (7.4-10.4); Platelet Count 232 10x3/uL (130-400); RBC Distribution Width 11.5 % (11.5-14.5); White Blood Cell (WBC) Count 7.3 10x3/uL (4.8-10.8)
[2022-01-11 07:38] LABS: Anion Gap 13 mmol/L (10-20); BUN (Urea Nitrogen) 18 mg/dL (8.4-25.7); Calc. Creatinine Clearance 149 mL/min (70-130); Calcium 8.5 mg/dL (7.8-10.44); Carbon Dioxide 25 mmol/L (23-31); Chloride 97 mmol/L (98-107); Estimated GFR 99; Glucose 96 mg/dL (83-110); Potassium 3.5 mmol/L (3.5-5.1); Sodium 131 mmol/L (136-145)
[2022-01-11] MEDS: Famotidine/PF 20 mg/2ml Vial SLOW IVP SCH ×2 (08:26→20:32)
[2022-01-11] MEDS: Morphine 4 MG/ML VIAL SLOW IVP PRN (13:54)
[2022-01-11] MEDS: Nicotine 14 MG PATCH TD SCH (13:57)
[2022-01-11] MEDS: Enoxaparin Sodium 40 MG/0.4 ML SYRINGE SC SCH (20:32)
[2022-01-12] MEDS: Ketorolac Tromethamine 30 MG/ML VIAL IVP SCH ×3 (00:32→12:32)
[2022-01-12 07:31] LABS: Anion Gap 16 mmol/L (10-20); BUN (Urea Nitrogen) 16 mg/dL (8.4-25.7); Calc. Creatinine Clearance 161 mL/min (70-130); Calcium 8.8 mg/dL (7.8-10.44); Carbon Dioxide 21 mmol/L (23-31); Chloride 96 mmol/L (98-107); Estimated GFR 101; Glucose 117 mg/dL (83-110); Potassium 3.7 mmol/L (3.5-5.1); Sodium 129 mmol/L (136-145)
[2022-01-12 08:15] VITALS: BP 118/86; TEMP 98.1
[2022-01-12] MEDS: Famotidine/PF 20 mg/2ml Vial SLOW IVP SCH (08:37)
== END 2022-01-12 12:40 | disposition home or self-care (01) | DRG 330 ==
LOC: ERS 08:20 → T4-A 13:09
PROVIDERS: ADMIT Internal Medicine; ATTEND Internal Medicine
PROC: 0D9670Z Drainage of Stomach with Drainage Device, Via Natural or Artificial Opening (ICD-10-PCS; 2022-01-08)
PROC: 0DTF0ZZ Resection of Right Large Intestine, Open Approach (ICD-10-PCS; principal; 2022-01-09)
PROC: 0DBU0ZZ Excision of Omentum, Open Approach (ICD-10-PCS; 2022-01-09)
DX: K63.89 Other specified diseases of intestine (principal); E87.1 Hypo-osmolality and hyponatremia; I50.22 Chronic systolic (congestive) heart failure; I11.0 Hypertensive heart disease with heart failure; Z51.5 Encounter for palliative care; J44.9 Chronic obstructive pulmonary disease, unspecified; Z20.822 Contact with and (suspected) exposure to COVID-19; Z96.653 Presence of artificial knee joint, bilateral; E87.6 Hypokalemia; F17.210 Nicotine dependence, cigarettes, uncomplicated; Z88.2 Allergy status to sulfonamides; Z79.82 Long term (current) use of aspirin; Z79.899 Other long term (current) drug therapy
CPT/HCPCS: 36415; 36416; 74019; 74177; 80048; 80053; 81003; 81015; 83690; 83930; 83935; 84484; 85025; 85610; 85730; 88307; 88309; 93005; 94640; 96374; 96375; 96376; J0330; J1650; J1885; J2270; J2405; J2543; J2704; J3480; J3490; J7042; J7050; Q9967; S0028; U0003; U0005

== ENCOUNTER 2022-04-28 09:28 | Outpatient (CLI) | payer MEDICARE ==
[2022-04-28] MEDS ORDERED: Magnevist 469MG/ML 20 ML VIAL ONE (13:14)
== END 2022-04-28 09:29 | disposition home or self-care (01) ==
LOC: TBSIIMAG 09:28
PROVIDERS: ATTEND Neurological Surgery
DX: M54.50 Low back pain, unspecified (principal); M51.36 Other intervertebral disc degeneration, lumbar region; M48.061 Spinal stenosis, lumbar region without neurogenic claudication
CPT/HCPCS: 72158

== ENCOUNTER 2022-06-07 08:52 | Outpatient (CLI) | payer MEDICARE | END 2022-06-07 08:53 | disposition home or self-care (01) | LOC: LABBT 08:52 | PROVIDERS: ATTEND Neurological Surgery | DX: Z01.818 Encounter for other preprocedural examination (principal); M48.061 Spinal stenosis, lumbar region without neurogenic claudication | CPT/HCPCS: 93005; 93010 ==

== ENCOUNTER 2022-09-01 08:26 | Outpatient (CLI) | payer MEDICARE | END 2022-09-01 08:27 | disposition home or self-care (01) | LOC: LABBT 08:26 | PROVIDERS: ATTEND Thoracic Surgery (Cardiothoracic Vascular Surgery) | DX: Z01.818 Encounter for other preprocedural examination (principal); I25.10 Atherosclerotic heart disease of native coronary artery without angina pectoris; I48.91 Unspecified atrial fibrillation | CPT/HCPCS: 71046; 93005; 93010 ==

== ENCOUNTER 2023-03-16 09:24 | Outpatient (CLI) | payer MEDICARE ==
[2023-03-16 10:48] LABS: Hematocrit 45.9 % (38.8-50.0); Mean Corpuscular HGB CONC 34.9 g/dL (32.0-36.0); Mean Corpuscular Hemoglobin 31.8 pg (27.0-33.0); Mean Corpuscular Volume 91.3 fl (81.2-95.1); Mean Platelet Volume 10.3 fl (7.4-10.4); Platelet Count 218 10x3/uL (150-450); RBC Distribution Width 13.2 % (11.5-14.5); Red Blood Cell (RBC) Count 5.03 10x6/uL (4.32-5.72); White Blood Cell (WBC) Count 8.5 10x3/uL (3.5-10.5)
[2023-03-16 11:06] LABS: Anion Gap 11 mmol/L (10-20); BUN (Urea Nitrogen) 16 mg/dL (8.4-25.7); Calc. Creatinine Clearance 0 mL/min (70-130); Calcium 9.1 mg/dL (7.8-10.44); Carbon Dioxide 30 mmol/L (23-31); Chloride 99 mmol/L (98-107); Estimated GFR 79; Glucose 136 mg/dL (83-110); Potassium 4.2 mmol/L (3.5-5.1); Sodium 136 mmol/L (136-145)
== END 2023-03-16 09:25 | disposition home or self-care (01) ==
LOC: LABBT 09:24
PROVIDERS: ATTEND Neurological Surgery
DX: Z01.812 Encounter for preprocedural laboratory examination (principal); M48.061 Spinal stenosis, lumbar region without neurogenic claudication
CPT/HCPCS: 80048; 85027

== ENCOUNTER 2023-03-22 05:56 | Day surgery (SDC) | payer MEDICARE ==
[2023-03-16 10:02] VITALS: BMI 33.9
[2023-03-22] MEDS ORDERED: Lidocaine 1% PF 5 ML VIAL ONE (06:33)
[2023-03-22] MEDS ORDERED: Rocuronium Bromide 10 MG/ML (10ML VIAL) ONE (06:33)
[2023-03-22] MEDS ORDERED: Fentanyl 250 MCG/5 ML VIAL ONE (06:33)
[2023-03-22] MEDS ORDERED: PROPOFOL 20 ML ONE (06:33)
[2023-03-22] MEDS ORDERED: Thrombin 5000 UNITS/5 ML VIAL ONE (06:58)
[2023-03-22] MEDS ORDERED: Bupivacaine PF 0.5% 30 ML VIAL ONE (06:58)
[2023-03-22] MEDS ORDERED: EPINEPHrine 1 MG/ML VIAL ONE (06:58)
[2023-03-22] MEDS ORDERED: Sodium Chloride 0.9% 100 ML ONE ×2 (08:31→12:11)
[2023-03-22] MEDS ORDERED: CEFAZOLIN 2 GM VIAL ONE ×2 (08:31→12:10)
[2023-03-22] MEDS ORDERED: ePHEDrine Sulfate 50 MG/10 ML VIAL ONE (09:41)
[2023-03-22] MEDS ORDERED: Glycopyrrolate 0.2 MG/ML 5 ML SYRINGE ONE (09:43)
[2023-03-22] MEDS ORDERED: PHENYLEPHRINE-NS 100 MCG/ML 10 ML SYRINGE ONE (09:49)
[2023-03-22] MEDS ORDERED: Dexamethasone 20 MG/5 ML VIAL ONE (10:23)
[2023-03-22] MEDS ORDERED: Ondansetron PF 4 MG/2 ML Vial ONE (10:23)
[2023-03-22] MEDS ORDERED: SUGAMMADEX SODIUM 200 MG/2 ML VIAL ONE (10:48)
[2023-03-22] MEDS ORDERED: Ketorolac Tromethamine 30 MG (1 mL) VIAL ONE (10:48)
[2023-03-22] MEDS ORDERED: Tamsulosin HCl 0.4 MG CAP ONE (11:18)
[2023-03-22] MEDS ORDERED: HYDROcodone/Acetaminophen 5/325 mg Tablet ONE (12:10)
== END 2023-03-22 13:42 | disposition home or self-care (01) ==
LOC: SDC 05:56
PROVIDERS: ATTEND Neurological Surgery
PROC: 01NB0ZZ Release Lumbar Nerve, Open Approach (ICD-10-PCS; principal; 2023-03-22)
DX: M48.062 Spinal stenosis, lumbar region with neurogenic claudication (principal); I10 Essential (primary) hypertension; E78.5 Hyperlipidemia, unspecified; N06.9 Isolated proteinuria with unspecified morphologic lesion; Z96.653 Presence of artificial knee joint, bilateral; Z95.5 Presence of coronary angioplasty implant and graft; Z87.891 Personal history of nicotine dependence; Z88.2 Allergy status to sulfonamides; Z79.82 Long term (current) use of aspirin; Z79.899 Other long term (current) drug therapy
CPT/HCPCS: 63042; J0171; J1100; J1885; J2405; J2704; J3010; J3490; S0020